=== PATIENT | female | born 1990 | race Caucasian/White ===

== ENCOUNTER 2016-12-07 19:30 | Inpatient (IN) | payer OTHER ==
[~2016-12-07] VITALS: Ht 160 cm; Wt 85.7 kg
[2016-12-07 20:05] VITALS: BP 136/86
[2016-12-07] MEDS ORDERED: PREN1TAB80 PO (20:09)
[2016-12-07] MEDS: RINGERS SOLUTION,LACTATED 1,000 ML IV SCH ×3 (21:29→23:11)
[2016-12-07 21:33] LABS: BASOPHILS % (AUTO) 0.3 % (0.0-2.0); EOSINOPHILS % (AUTO) 0.5 % (1.0-6.0); HEMOGLOBIN 12.9 g/dL (12.0-16.0); LYMPHOCYTES # (AUTO) 3.3 K/uL (1.0-4.8); MEAN CORPUSCULAR HEMOGLOBIN 28.8 pg (26.0-34.0); MEAN CORPUSCULAR HGB CONC 33.8 G/dL (31.0-37.0); MEAN CORPUSCULAR VOLUME 85 fL (80-100); MONOCYTES # (AUTO) 0.7 K/uL (0.1-1.0); MONOCYTES % (AUTO) 4.2 % (2.0-9.0); NEUTROPHILS # (AUTO) 12.3 K/uL (1.8-7.7); RED BLOOD CELL COUNT(AUTO) 4.46 MIL/uL (4.00-5.20); WHITE BLOOD COUNT (AUTO) 16.4 K/uL (4.5-11.0)
[2016-12-07] MEDS ORDERED: RINGERS SOLUTION,LACTATED 1,000 ML IV PRN (21:55)
[2016-12-07] MEDS ORDERED: OXYTOCIN 30 UNITS/LACT RINGERS 500 ML IV ONE (21:55)
[2016-12-07] MEDS ORDERED: OXYGEN THERAPY IH SCH (22:00)
[2016-12-07] MEDS ORDERED: METOCLOPRAMIDE HCL 5 MG/ML 2 ML VIAL IVP PRN (22:00)
[2016-12-07] MEDS ORDERED: CITRIC ACID/SODIUM CITRATE 30 ML SOLUTION UDCUP PO PRN (22:00)
[2016-12-07] MEDS: FentaNYL CITRATE-PF 100 MCG/2 ML VIAL IVP PRN ×2 (22:03→22:08)
[2016-12-07] MEDS ORDERED: LIDOCAINE HCL 2%/EPI 1:200,000/PF 10 ML VIAL ONE (23:28)
[2016-12-07] MEDS ORDERED: ROPIVACAINE HCL 0.2% 100 ML ED ONE (23:28)
[2016-12-07] MEDS ORDERED: ROPIVACAINE HCL 0.2% 100 ML ED PRN (23:50)
[2016-12-08] MEDS ORDERED: DiphenhydrAMINE HCL 50 MG/ML VIAL IVP PRN
[2016-12-08] MEDS ORDERED: NALBUPHINE HCL 10 MG/ML VIAL IVP PRN
[2016-12-08] MEDS ORDERED: ONDANSETRON HCL 4 MG/2 ML VIAL IVP PRN
[2016-12-08] MEDS ORDERED: PROMETHAZINE HCL 12.5 MG in SODIUM CHLORIDE 0.9% 50 ML IV PRN ×2
[2016-12-08] MEDS ORDERED: SODIUM CHLORIDE 0.9% 1,000 ML IV ONE (01:18)
[2016-12-08] MEDS ORDERED: ROPIVACAINE HCL 0.2% 100 ML ED ONE (06:44)
[2016-12-08] MEDS ORDERED: OXYTOCIN 20 UNITS/LACT RINGERS 1,000 ML IV ONE (07:51)
[2016-12-08] MEDS ORDERED: OXYTOCIN 20 UNITS/LACT RINGERS 1,000 ML IV SCH (10:07)
[2016-12-08] MEDS ORDERED: GLYCERIN/WITCH HAZEL LEAF 40 PADS JAR TP PRN (10:15)
[2016-12-08] MEDS ORDERED: ACETAMINOPHEN/CODEINE 300-30 MG TABLET PO PRN (10:15)
[2016-12-08] MEDS ORDERED: LANOLIN 7 GM OINTMENT TP PRN (10:15)
[2016-12-08] MEDS ORDERED: BENZOCAINE 20%/MENTHOL 56 GM SPRAY CANISTER TP PRN (10:15)
[2016-12-08] MEDS ORDERED: SENNA/DOCUSATE SODIUM 187-50 MG TABLET PO PRN (10:15)
[2016-12-08] MEDS ORDERED: MEASLES/MUMPS/RUBELLA VACCINE, LIVE 0.5 ML/VIAL SQ ONE (10:15)
[2016-12-08] MEDS: IBUPROFEN 600 MG TABLET PO PRN (10:16)
[2016-12-08] MEDS: MAGNESIUM HYDROXIDE SUSPENSION 30 ML UDCUP PO PRN (21:40)
[2016-12-09] MEDS: IBUPROFEN 600 MG TABLET PO PRN (03:49)
[2016-12-09 06:05] LABS: BASOPHILS % (AUTO) 0.2 % (0.0-2.0); EOSINOPHILS % (AUTO) 0.9 % (1.0-6.0); HEMATOCRIT 29.1 % (36-46); HEMOGLOBIN 9.7 g/dL (12.0-16.0); LYMPHOCYTES # (AUTO) 3.6 K/uL (1.0-4.8); LYMPHOCYTES % (AUTO) 21.1 % (22.0-44.0); MEAN CORPUSCULAR HEMOGLOBIN 28.8 pg (26.0-34.0); MEAN CORPUSCULAR HGB CONC 33.5 G/dL (31.0-37.0); MEAN CORPUSCULAR VOLUME 86 fL (80-100); MONOCYTES # (AUTO) 0.9 K/uL (0.1-1.0); MONOCYTES % (AUTO) 5.4 % (2.0-9.0); NEUTROPHILS # (AUTO) 12.5 K/uL (1.8-7.7); NEUTROPHILS % (AUTO) 72.4 % (40.0-70.0); RED BLOOD CELL COUNT(AUTO) 3.38 MIL/uL (4.00-5.20); RED CELL DISTRIBUTION WIDTH 14.4 % (11.5-14.5); WHITE BLOOD COUNT (AUTO) 17.2 K/uL (4.5-11.0)
[2016-12-09] MEDS: MAGNESIUM HYDROXIDE SUSPENSION 30 ML UDCUP PO PRN (09:33)
[2016-12-09] MEDS ORDERED: IBUP-2070 PO (11:11)
[2016-12-09] MEDS ORDERED: DSS100 PO (11:14)
[2016-12-09] MEDS ORDERED: FERR-89 PO (11:16)
== END 2016-12-09 14:10 | disposition home or self-care (01) | DRG 775 ==
LOC: OBSVTOIN 19:30 → 4S 19:30
PROVIDERS: ADMIT Obstetrics & Gynecology; ATTEND Obstetrics & Gynecology
PROC: 10E0XZZ Delivery of Products of Conception, External Approach (ICD-10-PCS; principal; 2016-12-08)
PROC: 0W8NXZZ Division of Female Perineum, External Approach (ICD-10-PCS; 2016-12-08)
PROC: 3E0S3BZ Introduction of Anesthetic Agent into Epidural Space, Percutaneous Approach (ICD-10-PCS; 2016-12-08)
PROC: 00HU33Z Insertion of Infusion Device into Spinal Canal, Percutaneous Approach (ICD-10-PCS; 2016-12-08)
DX: O69.81X0 Labor and delivery complicated by cord around neck, without compression, not applicable or unspecified (principal); O77.0 Labor and delivery complicated by meconium in amniotic fluid; Z3A.40 40 weeks gestation of pregnancy; Z37.0 Single live birth
CPT/HCPCS: 86850; 86900; 86901; J2590; J2795; J3010; J3490; J7030; J7120